=== PATIENT | female | born 1935 | race Caucasian/White ===

== ENCOUNTER 2019-09-26 21:19 | Emergency (ER) | payer OTHER ==
[~2019-09-26] VITALS: Ht 157.5 cm; Wt 52.2 kg
[~2019-09-26 21:19] MED LIST: DYA PO; IND20 PO; LAC PO; LEV250 PO; ZOC20 PO; ZYRTEC10 MG PO
[2019-09-26 21:27] VITALS: Ht 157.5 cm; Wt 52.2 kg
[2019-09-26 23:24] VITALS: BP 161/70
== END 2019-09-26 23:24 | disposition home or self-care (01) ==
LOC: ED 21:19
DX: J02.9 Acute pharyngitis, unspecified (principal); I10 Essential (primary) hypertension; Z90.89 Acquired absence of other organs; Z90.49 Acquired absence of other specified parts of digestive tract; Z90.710 Acquired absence of both cervix and uterus; Z98.890 Other specified postprocedural states; Z88.5 Allergy status to narcotic agent; Z88.8 Allergy status to other drugs, medicaments and biological substances